=== PATIENT | female | born 1985 | race Caucasian/White ===

== ENCOUNTER 2021-01-25 16:48 | Inpatient (IN) | payer BC, OTHER ==
[2021-01-25 17:38] VITALS: BMI 35.3
[2021-01-25] MEDS ORDERED: hydrALAZINE 20 MG/ML VIAL SLOW IVP PRN ×2 (18:09→18:27)
[2021-01-25 18:23] LABS: Fetal Membranes Rupture RUPTURE DETECTED (No Rupture)
[2021-01-25] MEDS ORDERED: HYDROcodone/Acetaminophen 5/325 mg Tablet PO PRN (18:27)
[2021-01-25] MEDS ORDERED: Ibuprofen 800 MG TAB PO PRN (18:27)
[2021-01-25] MEDS ORDERED: Ondansetron PF 4 MG/2 ML Vial IVP PRN (18:27)
[2021-01-25] MEDS ORDERED: Lidocaine 1% (PF) 30 ML VIAL SC PRN (18:27)
[2021-01-25] MEDS ORDERED: Butorphanol Tartrate 1 MG/ML VIAL SLOW IVP PRN (18:27)
[2021-01-25] MEDS ORDERED: Lactated Ringer's 1,000 ML IV SCH (18:30)
[2021-01-25 19:27] LABS: Hemoglobin 12.4 g/dL (12.0-15.5); Mean Corpuscular HGB CONC 33.5 g/dL (32.0-36.0); Mean Corpuscular Hemoglobin 33.6 pg (27.0-33.0); Mean Corpuscular Volume 100.3 fl (81.6-98.3); Platelet Count 277 10x3/uL (150-450); RBC Distribution Width 12.4 % (11.5-14.5); Red Blood Cell (RBC) Count 3.69 10x6/uL (3.90-5.03); White Blood Cell (WBC) Count 16.2 10x3/uL (3.5-10.5)
[2021-01-25 20:09] LABS: Hep B Surf Ag Non-Reactive S/CO (NonReactive); Syphilis Antibody Nonreactive (Nonreactive); Syphilis Antibody Index 0.05 S/CO (<1.00 Non-Reactive)
[2021-01-25 20:10] LABS: HBSAg Index 0.19 S/CO (0-0.99)
[2021-01-25] MEDS: NS w/ Oxytocin 30 units 500 ML IV SCH (20:59)
[2021-01-25 21:11] LABS: SARS-CoV-2 NAA Rapid Test Not Detected (NotDetected)
[2021-01-25 22:52] LABS: HIV (1/2) Antibody/Antigen Non-Reactive (NonReactive); HIV 1/2 INDEX 0.11 S/CO (<1.00)
[2021-01-26] MEDS: NS w/ Oxytocin 30 units 500 ML IV SCH (00:03)
[2021-01-26] MEDS ORDERED: hydrALAZINE 20 MG/ML VIAL SLOW IVP PRN (00:24)
[2021-01-26] MEDS ORDERED: Bisacodyl 10 MG SUPP PR PRN (00:24)
[2021-01-26] MEDS ORDERED: HYDROcodone/Acetaminophen 5/325 mg Tablet PO PRN (00:24)
[2021-01-26] MEDS ORDERED: Milk Of Magnesia 30 ML UDCUP PO PRN (00:24)
[2021-01-26] MEDS ORDERED: Boostrix 0.5 ML (Tdap) VIAL IM ONE (00:24)
[2021-01-26] MEDS ORDERED: Preparation H Ointment 28 GM TUBE PR PRN (00:24)
[2021-01-26] MEDS: Ibuprofen 800 MG TAB PO SCH ×3 (00:38→17:35)
[2021-01-26 05:08] LABS: Hemoglobin 11.5 g/dL (12.0-15.5); Mean Corpuscular HGB CONC 34.2 g/dL (32.0-36.0); Mean Corpuscular Hemoglobin 33.7 pg (27.0-33.0); Mean Corpuscular Volume 98.5 fl (81.6-98.3); Mean Platelet Volume 9.7 fl (7.4-10.4); Platelet Count 208 10x3/uL (150-450); RBC Distribution Width 12.4 % (11.5-14.5); Red Blood Cell (RBC) Count 3.41 10x6/uL (3.90-5.03); White Blood Cell (WBC) Count 20.8 10x3/uL (3.5-10.5)
[2021-01-26 05:26] LABS: MDiff Complete? YES
[2021-01-26 05:35] LABS: Band 11 % (5-11); Lymphocytes 6 % (21-51); Metamyelocyte 1 % (0-0); Monocytes 5 % (0-10); Neutrophil 77 % (42-75)
[2021-01-26 05:37] LABS: Platelet Morphology Comment Appears Adequate; Toxic Granulation SLIGHT
[2021-01-26 05:38] LABS: RBC Morphology Normal
[2021-01-26] MEDS ORDERED: Ibuprofen 800 MG TAB PO SCH (06:00)
[2021-01-26] MEDS: Ferrous Sulfate 325 MG TAB PO SCH (07:22)
[2021-01-26] MEDS: Docusate Calcium (SURFAK) 240 MG CAP PO SCH ×2 (08:21→20:26)
[2021-01-27] MEDS: Ibuprofen 800 MG TAB PO SCH ×2 (00:59→08:30)
[2021-01-27 06:07] LABS: #Basophils 0.1 10x3/uL (0.0-0.2); #Eosinphils 0.2 10x3/uL (0.0-0.5); #Monocytes 0.9 10x3/uL (0.0-1.1); #Neutrophils 8.7 10x3/uL (1.5-8.4); %Basophils 0.5 % (0.0-2.0); %Eosinophils 1.5 % (0.0-6.0); %Lymphocytes 24.2 % (18.0-47.0); %Monocytes 6.8 % (0.0-10.0); Hemoglobin 10.9 g/dL (12.0-15.5); Mean Corpuscular HGB CONC 33.3 g/dL (32.0-36.0); Mean Corpuscular Hemoglobin 34.2 pg (27.0-33.0); Mean Corpuscular Volume 102.5 fl (81.6-98.3); Mean Platelet Volume 9.8 fl (7.4-10.4); Platelet Count 199 10x3/uL (150-450); RBC Distribution Width 12.6 % (11.5-14.5); Red Blood Cell (RBC) Count 3.19 10x6/uL (3.90-5.03); White Blood Cell (WBC) Count 13.2 10x3/uL (3.5-10.5)
[2021-01-27] MEDS: Ferrous Sulfate 325 MG TAB PO SCH (07:41)
[2021-01-27 07:44] VITALS: BP 111/63; TEMP 98
[2021-01-27] MEDS: Docusate Calcium (SURFAK) 240 MG CAP PO SCH (08:30)
== END 2021-01-27 13:00 | disposition home or self-care (01) | DRG 807 ==
LOC: CSHLD/OP 16:48 → CSHLD 19:52 → CSHPED 01-26 01:20
PROVIDERS: ADMIT Family Medicine; ATTEND Family Medicine
PROC: 0KQM0ZZ Repair Perineum Muscle, Open Approach (ICD-10-PCS; principal; 2021-01-25)
PROC: 10E0XZZ Delivery of Products of Conception, External Approach (ICD-10-PCS; 2021-01-25)
DX: O70.1 Second degree perineal laceration during delivery (principal); Z37.0 Single live birth; Z3A.40 40 weeks gestation of pregnancy; Z20.822 Contact with and (suspected) exposure to COVID-19
CPT/HCPCS: 36415; 84112; 85025; 85027; 86780; 86850; 86900; 86901; 87340; 87389; J2001; J2590; U0002

== ENCOUNTER 2025-02-11 11:48 | Inpatient (IN) | payer BC, OTHER ==
[2025-02-11 12:14] VITALS: BMI 39.4
[2025-02-11] MEDS ORDERED: Methylergonovine 0.2 MG/ML VIAL IM PRN (12:31)
[2025-02-11] MEDS ORDERED: hydrALAZINE 20 MG/ML VIAL SLOW IVP PRN ×2 (12:31→18:34)
[2025-02-11] MEDS ORDERED: Lidocaine 1% (PF) 30 ML VIAL SC PRN (12:31)
[2025-02-11] MEDS ORDERED: Ibuprofen 800 MG TAB PO PRN (12:31)
[2025-02-11] MEDS ORDERED: Tranexamic Acid 1,000 MG/10 ML VIAL IVP PRN (12:31)
[2025-02-11] MEDS ORDERED: Acetaminophen 500 MG TAB PO PRN (12:31)
[2025-02-11] MEDS ORDERED: Diphenoxylate HCl/Atropine Tablet PO PRN ×2 (12:31)
[2025-02-11] MEDS ORDERED: Carboprost 250 MCG/ML AMP IM PRN (12:31)
[2025-02-11] MEDS ORDERED: Ondansetron PF 4 MG/2 ML Vial IVP PRN (12:31)
[2025-02-11 12:32] LABS: Fetal Membranes Rupture RUPTURE DETECTED (No Rupture)
[2025-02-11] MEDS ORDERED: Oxytocin 30 units/NS 500 ML 500 ML IV SCH ×2 (12:45)
[2025-02-11] MEDS ORDERED: Penicillin G Potassium 5 MILL.UNITS in Sodium Chloride 0.9% 100 ML IVPB SCH (12:45)
[2025-02-11 13:17] LABS: Hematocrit 37.0 % (34.9-44.5); Hemoglobin 12.9 g/dL (12.0-15.5); Mean Corpuscular Hemoglobin 34.0 pg (27.0-33.0); Mean Corpuscular Volume 97.6 fL (81.6-98.3); Platelet Count 205 10x3/uL (150-450); Red Blood Cell (RBC) Count 3.79 10x6/uL (3.90-5.03); White Blood Cell (WBC) Count 13.05 10x3/uL (3.5-10.5)
[2025-02-11 13:56] LABS: Hep B Surf Ag - L&D Non-Reactive S/CO (NonReactive)
[2025-02-11 13:57] LABS: Syphilis Antibody Index 0.07 S/CO (<1.00 Non-Reactive)
[2025-02-11] MEDS ORDERED: Penicillin G 2.5 MILL.units 2.5 MILL.UNITS in Premix 1 BAG IVPB SCH (17:00)
[2025-02-11] MEDS ORDERED: Bisacodyl 10 MG SUPP PR PRN (18:34)
[2025-02-11] MEDS ORDERED: Milk Of Magnesia 30 ML UDCUP PO PRN (18:34)
[2025-02-11] MEDS ORDERED: Preparation H Ointment 28 GM TUBE PR PRN (18:34)
[2025-02-11] MEDS: Ibuprofen 800 MG TAB PO SCH (20:33)
[2025-02-11] MEDS: Ferrous Sulfate 325 MG TAB PO SCH (20:36)
[2025-02-12 07:54] VITALS: BP 129/71
[2025-02-12] MEDS: Ferrous Sulfate 325 MG TAB PO SCH (10:05)
[2025-02-12 11:36] VITALS: TEMP 97.6
== END 2025-02-12 16:00 | disposition home or self-care (01) | DRG 807 ==
LOC: CSHLD/OP 11:48 → CSHLD 12:45 → CSHPP 16:56
PROVIDERS: ADMIT Family Medicine; ATTEND Family Medicine
PROC: 0HQ9XZZ Repair Perineum Skin, External Approach (ICD-10-PCS; principal; 2025-02-11)
PROC: 10E0XZZ Delivery of Products of Conception, External Approach (ICD-10-PCS; principal; 2025-02-11)
DX: O69.81X0 Labor and delivery complicated by cord around neck, without compression, not applicable or unspecified (principal); Z37.0 Single live birth; Z3A.37 37 weeks gestation of pregnancy; O70.0 First degree perineal laceration during delivery
CPT/HCPCS: 84112; 85027; 86780; 86850; 86900; 86901; 87340; 99285